=== PATIENT | male | born 1990 | race Caucasian/White ===

== ENCOUNTER 2016-09-23 11:24 | Emergency (ER) | payer BC ==
[~2016-09-23] VITALS: Ht 177.8 cm; Wt 79.0 kg
[2016-09-23 11:29] VITALS: TEMP 37; Ht 177.8 cm; Wt 79.0 kg
--- NOTE | 2016-09-23 13:11 | DIAGNOSTIC IMAGING REPORT ---
RIGHT RIBS UNILATERAL WITH PA CHEST CLINICAL HISTORY: Right rib pain status post trauma COMPARISON STUDY: Chest x-ray dated 04/10/2016 FINDINGS: There is a prominent scoliosis. There is an old fracture the right first rib. There is no pneumothorax. No acute rib fractures are visualized. There is a nonspecific 18 mm right upper quadrant calcification. IMPRESSION: 1. Old right first rib fracture 2. No evidence of pneumothorax 3. No acute right-sided rib fractures identified 4. Nonspecific 18 mm right upper quadrant calcification Electronically signed by: Chance Crawley M.D. 09/23/2016 1:10 PM Dictated Date/Time: 09/23/2016 1:08 PM
--- NOTE | 2016-09-23 13:14 | DIAGNOSTIC IMAGING REPORT ---
RIGHT SCAPULA CLINICAL HISTORY: R scapular pain Right pain COMPARISON: None. DISCUSSION: The bones and joint spaces appear intact. There is no evidence of fracture, dislocation or bony disease. There is no evidence for soft tissue swelling. Exam is made of what appears to be an old fracture posterior right first rib IMPRESSION: Negative study. Electronically signed by: Alexis Wolf M.D. 09/23/2016 1:13 PM Dictated Date/Time: 09/23/2016 1:12 PM
[2016-09-23 13:44] VITALS: BP 125/80; PULSE 77; O2SAT 100
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
== END 2016-09-23 13:25 | disposition home or self-care (01) ==
LOC: C.EDB 11:26 → C.EDD 13:25
DX: R07.81 Pleurodynia (principal); M25.511 Pain in right shoulder; W50.0XXA Accidental hit or strike by another person, initial encounter; Y93.75 Activity, martial arts

== ENCOUNTER → 2017-08-09 | Outpatient (CLI) | payer BC ==
[~2017-08-09] MED LIST: HYDR-5688 PO
== END | disposition home or self-care (01) ==
LOC: C.RDSM 14:10
PROVIDERS: ATTEND Family Medicine Sports Medicine
DX: Z87.39 Personal history of other diseases of the musculoskeletal system and connective tissue (principal)